=== PATIENT | female | born 1950 | race Caucasian/White ===

== ENCOUNTER 2016-07-07 06:53 | Day surgery (SDC) | payer MEDICARE, BC ==
[~2016-07-07] VITALS: Ht 154.9 cm; Wt 72.0 kg
[~2016-07-07 06:53] MED LIST: ASPI-664 PO; ATOR10TA65 PO; BLVX50T PO; CLON1TAB3 PO; METF500T4 PO; OLAN5TAB5 PO; SITA100T8 PO; VENL-42 PO; VENL75CA89 PO
[2016-07-07] MEDS ORDERED: LIDOCAINE 2% (SDV) 5 ML INJ ONE (07:25)
[2016-07-07] MEDS ORDERED: PROPOFOL 40 ML ONE (07:25)
[2016-07-07] MEDS ORDERED: IRON PO (07:37)
[2016-07-07] MEDS ORDERED: D3 (07:37)
[2016-07-07 07:40] VITALS: Ht 154.9 cm; Wt 72.0 kg
[2016-07-07 08:30] VITALS: BP 138/60; PULSE 65; RESP 24
[2016-07-07] MEDS ORDERED: GLYCOPYRROLATE 0.4 MG INJ ONE (08:41)
[2016-07-07 09:38] VITALS: BP 146/74; PULSE 63; RESP 18
--- NOTE | 2016-07-07 10:45 | GILP ---
DATE OF PROCEDURE: NAME OF PROCEDURE: Esophagogastroduodenoscopy. PREOPERATIVE DIAGNOSIS: Patient presenting with history of severe anemia, rule out peptic ulcer dis ease, rule out malignancy of the upper gastrointestinal tract. POSTOPERATIVE DIAGNOSES: 1. Multiple polyps noted in the stomach. Biopsies were done. 2. Multiple erosions were noted in the stomach. DESCRIPTION OF PROCEDURE: After informed written consent was obtained, the patient was asked to lie on the left lateral side. Intravenous anesthesia was given by anesthesiologist, Dr. Rogel. Wh en the patient became somnolent, the Olympus video upper endoscope was introduced into the oropharyn x, then into the esophagus. Esophagus appeared normal with no mucosal abnormality. Scope at this t mary was advanced into the stomach. Multiple polyps noted in the stomach. Multiple biopsies were ob tained. Several erosions were noted in the mid body and antrum of the stomach. Biopsy was done fro m the antrum, the lesser curvature and the fundus to rule out H. pylori infection. The mucosa of th e duodenum appeared normal up to the end of the third portion. Scope at this time was withdrawn and no additional abnormalities detected and the procedure was terminated. PLAN: Recommend proton pump inhibitor therapy. Wait for the pathology report. Dictated By: AMRIT MORRIS/NTS Conf#: [id number] DID#: [id number] CC: LEONIDAS MADERA MD;*EndCC*
--- NOTE | 2016-07-08 05:39 | GILP ---
DATE OF PROCEDURE: PROCEDURE: Colonoscopy. PREOPERATIVE DIAGNOSIS: Patient presenting with a history of severe anemia, rule out colorectal sergey plasm, arteriovenous malformation and diverticulosis. POSTOPERATIVE DIAGNOSES: Moderate degree of diverticulosis noted. Suboptimal prep noted in the asc ending colon. DESCRIPTION OF PROCEDURE: After informed written consent was obtained, the patient was asked to lie on the left lateral side. The patient was given intravenous anesthesia by anesthesiologist, Dr. Viet prakash. When the patient became somnolent, the Olympus video colonoscope was introduced into the r ectum and scope was advanced all the way to the cecum. The entire colon was examined. Diverticulos is noted all along the colon which is moderate degree. Some stool was noted in the descending colon which was aspirated to some degree. Small polyps canno t be excluded. No major lesion noted. Endoscope at this time was withdrawn. On the way out, retro flexion was performed. No hemorrhoids were noted and the procedure was terminated. PLAN: Recommend capsule endoscopy. Dictated By: AMRIT MORRIS/MATTHEW Conf#: [id number] DID#: [id number] CC: LEONIDAS MADERA MD;*EndCC*
== END 2016-07-07 09:43 | disposition home or self-care (01) ==
LOC: GIL 06:53
PROVIDERS: ATTEND Internal Medicine Gastroenterology
DX: K31.7 Polyp of stomach and duodenum (principal); K57.90 Diverticulosis of intestine, part unspecified, without perforation or abscess without bleeding; I10 Essential (primary) hypertension; E66.9 Obesity, unspecified; Z68.30 Body mass index [BMI] 30.0-30.9, adult; E11.9 Type 2 diabetes mellitus without complications; F32.9 Major depressive disorder, single episode, unspecified
CPT/HCPCS: 82962; 88305; 88312

== ENCOUNTER 2018-08-17 16:19 | Emergency (ER) | payer MEDICARE, BC ==
[~2018-08-17] VITALS: Wt 80.0 kg
[~2018-08-17 16:19] MED LIST changes: -ASPI-664 PO; +CLON1TAB13 PO; -CLON1TAB3 PO; +D3; +IRON PO; +METF500T24 PO; -METF500T4 PO; +SITA100T11 PO; -SITA100T8 PO; -VENL-42 PO; -VENL75CA89 PO
[2018-08-17 16:31] VITALS: BP 161/82; PULSE 85; RESP 18
--- NOTE | 2018-08-17 18:03 | ERD ---
ER Documentation Chief Complaint Chief Complaint HARD COOKED BEANS PT POSSIBLY GOT STUCK IN THROAT. NO SOB OR STRIDOR HPI 68-year-old female presents with complaints of foreign body sensation neck or throat. She was eating beans which were dry. She denies any hemoptysis, loss of consciousness, chest pain, shortness of breath. Her primary complaint is pain in her left side of her throat. She is able to tolerate liquids. She denies eating any bones ROS All systems reviewed and are negative except as per history of present illness. Medications Home Meds Reported Medications [D3] No Conflict Check 07/07/16 [Iron] No Conflict Check, 65 MG PO 07/07/16 Sitagliptin* (Januvia*) 100 Mg Tablet, 100 MG PO DAILY, TAB 06/28/14 Atorvastatin Calcium (Atorvastatin Calcium) 10 Mg Tab, 10 MG PO HS, TAB 06/28/14 Metformin Hcl* (Metformin Hcl*) 500 Mg Tablet, 500 MG PO BID, TAB 06/28/14 Olanzapine* (Zyprexa*) 5 Mg Tablet, 5 MG PO DAILY, TAB 06/28/14 Clonazepam* (Clonazepam*) 1 Mg Tablet, 1 MG PO BID, TAB 06/28/14 Fluvoxamine Maleate* (Luvox*) 50 Mg Tab, 300 MG PO QHS, TAB 06/28/14 Allergies Allergies: Coded Allergies: Penicillins (Verified Allergy, Unknown, 08/01/14) codeine (Verified Allergy, Unknown, 08/01/14) PMhx/Soc History of Surgery: Yes (TONSILLECTOMY) Anesthesia Reaction: No Hx Neurological Disorder: No Hx Respiratory Disorders: No Hx Cardiac Disorders: No Hx Psychiatric Problems: Yes (DEPRESSION, ANXIETY) Hx Miscellaneous Medical Probl: Yes (HYPERLIPIDEMIA, ANEMIA) Hx Alcohol Use: No Hx Substance Use: No Hx Tobacco Use: No Smoking Status: Never smoker FmHx Family History: No diabetes, No coronary disease, No other Physical Exam Vitals Vital Signs Date Temp Pulse Resp B/P (MAP) Pulse Ox O2 O2 Flow FiO2 Time Delivery Rate 08/17/18 98.2 85 18 161/82 98 16:31 (108) Physical Exam Const: No acute distress Head: Atraumatic Eyes: Normal Conjunctiva ENT: Normal External Ears, Nose and Mouth. Airway patent. Neck: Full range of motion. No meningismus. Mild tenderness in the left anterior cervical area without masses, swelling. Airway patent. Resp: Clear to auscultation bilaterally Cardio: Regular rate and rhythm, no murmurs Abd: Soft, non tender, non distended. Normal bowel sounds Skin: No petechiae or rashes Back: No midline or flank tenderness Ext: No cyanosis, or edema Neur: Awake and alert Psych: Normal Mood and Affect Procedures/MDM Patient presents with a foreign body sensation after eating hard food today. CT neck and chest showed no foreign bodies, infiltrates, acute abnormalities. Stable throughout the ER course. Patient may have a pharyngeal abrasion. She has no signs of bleeding, hypoxemia, rest distress, airway obstruction, sepsis. She is no signs or symptoms of mediastinitis or foreign body. She will discharged home with recommendations for clear liquids, primary care follow-up and return precautions. The patient was stable with no new complaints during the ER course. Clinically, there is no current evidence to suggest meningitis, sepsis, acute abdomen, pneumonia, stroke, acute coronary syndrome, pulmonary embolism, aortic dissection or any other emergent condition appearing to require further evaluation or hospitalization. Patient counseled regarding my diagnostic impression and care plan. Prior to discharge all questions answered. Pt agrees with treatment plan and understands strict return precautions. Pt is instructed to follow up with primary care provider within 24-48 hours. Precautionary instructions provided including instructions to return to the ER if not improving or for any worsening or changing symptoms or concerns. Disclaimer: Inadvertent spelling and grammatical errors are likely due to EHR/dictation software use and do not reflect on the overall quality of patient care. Also, please note that the electronic time recorded on this note does not necessarily reflect the actual time of the patient encounter. Departure Diagnosis: Primary Impression: Abrasion of pharynx Encounter type: initial encounter Qualified Codes: S10.11XA - Abrasion of throat, initial encounter Condition: Stable Patient Instructions: Pharyngeal Abrasion Additional Instructions: No foreign body seen on CT scans. May be abrasion. Recommend clear fluids. Recheck for fevers, shortness of breath, vomiting, new worsening symptoms. REBECCA ARRIAGA MD Aug 17, 2018 18:03
== END 2018-08-17 18:17 | disposition home or self-care (01) ==
LOC: FTE 16:19
DX: S10.11XA Abrasion of throat, initial encounter (principal); E11.9 Type 2 diabetes mellitus without complications; X58.XXXA Exposure to other specified factors, initial encounter; Y92.9 Unspecified place or not applicable; Z79.84 Long term (current) use of oral hypoglycemic drugs
CPT/HCPCS: 70490; 71250